=== PATIENT | male | born 1980 | race Caucasian/White ===

== ENCOUNTER 2021-04-13 20:41 | Emergency (ER) | payer OTHER ==
[2021-04-13] MEDS ORDERED: ZOFRAN4 MG PO (20:56)
[2021-04-13] MEDS ORDERED: IBUPROFEN600 MG PO (20:56)
[2021-04-13] MEDS ORDERED: CLEOCIN HCL300 MG PO (20:56)
== END 2021-04-13 21:18 | disposition home or self-care (01) ==
LOC: ER1 20:41
DX: K04.7 Periapical abscess without sinus (principal); F17.210 Nicotine dependence, cigarettes, uncomplicated
CPT/HCPCS: 96374; 99283

== ENCOUNTER 2021-05-01 08:12 | Emergency (ER) | payer OTHER ==
[~2021-05-01 08:12] MED LIST: CLEOCIN HCL300 MG PO; IBUPROFEN600 MG PO; ZOFRAN4 MG PO
[2021-05-01 09:08] LABS: HEMOGLOBIN 16.5 gm/dl (14.0-17.5); RED BLOOD COUNT 5.43 M/UL (4.20-5.50); WHITE BLOOD COUNT 19.4 K/UL (4.5-11.0)
[2021-05-01 09:21] LABS: BUN/CREATININE RATIO 9 (0-10)
[2021-05-01] MEDS ORDERED: ZOFRAN ODT 4 MG4 MG PO (10:02)
== END 2021-05-01 10:30 | disposition home or self-care (01) ==
LOC: ER1 08:12
PROVIDERS: Student in an Organized Health Care Education/Training Program
DX: R10.9 Unspecified abdominal pain (principal); R11.2 Nausea with vomiting, unspecified; R19.7 Diarrhea, unspecified; R10.817 Generalized abdominal tenderness; F17.210 Nicotine dependence, cigarettes, uncomplicated
CPT/HCPCS: 80053; 82550; 82553; 83605; 83690; 85025; 96374; 96375; 99284; J2270; J2405; J7120; Q9967

== ENCOUNTER 2021-05-05 10:36 | Emergency (ER) | payer OTHER ==
[~2021-05-05 10:36] MED LIST changes: +ZOFRAN ODT 4 MG4 MG PO
[2021-05-05 14:50] LABS: RED BLOOD COUNT 6.07 M/UL (4.20-5.50); WHITE BLOOD COUNT 10.3 K/UL (4.5-11.0)
[2021-05-05 14:52] LABS: HEMOGLOBIN 18.5 gm/dl (14.0-17.5)
[2021-05-05 15:16] LABS: BUN/CREATININE RATIO 14 (0-10)
[2021-05-05] MEDS ORDERED: OMEPRAZOLE40 MG PO (16:16)
[2021-05-05] MEDS ORDERED: ZOFRAN ODT 4 MG4 MG PO (16:16)
== END 2021-05-05 17:54 | disposition home or self-care (01) ==
LOC: ER1 10:36
DX: E86.0 Dehydration (principal); R10.9 Unspecified abdominal pain; F17.200 Nicotine dependence, unspecified, uncomplicated
CPT/HCPCS: 74019; 80053; 81001; 83690; 85025; 96372; 96374; 99284; C9113; J1885; J7030